=== PATIENT | female | born 1960 | race Caucasian/White ===

== ENCOUNTER 2019-04-07 07:15 | Inpatient (IN) | payer MEDICAID, OTHER ==
[~2019-04-07] VITALS: Ht 162.6 cm; Wt 79.4 kg
[2019-04-07] MEDS ORDERED: ALBUTEROL SULF 2.5 MG/0.5ML(0.5%) NEB SOLN HHN ONE (07:30)
[2019-04-07] MEDS ORDERED: IPRATROPIUM BROM 0.5 MG/2.5ML INH SOL HHN ONE (07:30)
[2019-04-07] MEDS ORDERED: methylPREDNISolone SOD SUCC 125 MG/2 ML VL IV ONE (07:30)
[2019-04-07 08:15] LABS: Hematocrit 48.2 % (36.0-46.0); Hemoglobin 15.9 g/dL (12.2-16.2); Mean Corpuscular Hemoglobin 29.8 pg (28.0-32.0); Mean Corpuscular Volume 90.3 fL (80.0-100.0); Platelet Count (auto) 357 10^3/uL (140-450); Red Blood Cells 5.33 10^6/uL (4.0-5.20); Red Cell Distribution Width 14.7 % (11.8-14.3); White Blood Cell 8.5 10^3/uL (4.4-10.8)
[2019-04-07 08:18] LABS: Band Neutrophils % (manual) 0; Basophils % (manual) 0 (0.0-2.0); Blast Cells 0; Metamyelocytes % 0; Myelocytes % 0; Promyelocytes % 0; Reactive Lymphocytes 0
[2019-04-07 08:34] LABS: Albumin 3.5 g/dL (3.4-5.0); Calcium 8.6 mg/dL (8.5-10.1); Potassium 3.8 mmol/L (3.5-5.1)
[2019-04-07 08:35] LABS: Eosinophils % (manual) 14 (0-7); Lymphocytes % (manual) 40 (10.0-50.0); Monocytes % (manual) 1 (0-12)
[2019-04-07 08:36] LABS: BUN/Creatinine Ratio 10.9; Lactic Acid w/Reflex 2.7 mmol/L (0.4-2.0)
[2019-04-07 08:41] LABS: Bilirubin, Total 0.3 mg/dL (0.2-1.0); Total Protein 7.5 g/dL (6.4-8.2)
[2019-04-07] MEDS ORDERED: ALBUTEROL SULF 2.5 MG/0.5ML(0.5%) NEB SOLN NEB PRN (08:45)
[2019-04-07] MEDS ORDERED: MORPHINE SULF INJ 2 MG/ML SYRINGE 1ML IV PRN (08:45)
[2019-04-07] MEDS ORDERED: ACETAMINOPHEN 500 MG TAB PO PRN (08:45)
[2019-04-07] MEDS ORDERED: NITROGLYCERIN 0.4 MG SL TAB SL PRN (08:45)
[2019-04-07] MEDS ORDERED: DEXTROSE (50%) 50ML SYRG IV PRN (08:45)
[2019-04-07] MEDS ORDERED: OSELTAMIVIR 75 MG CAP PO ONE (08:45)
[2019-04-07] MEDS ORDERED: LACTULOSE 20Gm/30ML SOLN PO PRN (08:45)
[2019-04-07] MEDS ORDERED: LEVOFLOXACIN 500MG 100 ML IV ONE (09:00)
[2019-04-07] MEDS: SODIUM CHLORIDE 0.9% 1,000 ML IV SCH ×2 (09:02→22:05)
[2019-04-07] MEDS: cefTRIAXone 1GM/50ML D5W 50 ML IV SCH (09:03)
[2019-04-07] MEDS: OSELTAMIVIR 75 MG CAP PO SCH ×2 (10:00→17:31)
[2019-04-07] MEDS: AZITHROMYCIN 500MG/ 250ML 250 ML IV SCH (10:29)
[2019-04-07] MEDS: ALBUTEROL SULF 2.5 MG/0.5ML(0.5%) NEB SOLN NEB SCH ×2 (11:06→18:41)
[2019-04-07] MEDS: IPRATROPIUM BROM 0.5 MG/2.5ML INH SOL NEB SCH ×2 (11:06→18:42)
[2019-04-07] MEDS: ACCU-CHEK COMFORT CURVE STRIP VI SCH ×3 (11:30→22:04)
[2019-04-07] MEDS: ENOXAPARIN SOD 40 MG/0.4 ML SYRINGE SC SCH (11:45)
[2019-04-07] MEDS: PROMETHAZINE HCL 25 MG/ML 1ML IV PRN ×2 (12:36→12:40)
[2019-04-07] MEDS: methylPREDNISolone SOD SUCC 40 MG/ML VL IV SCH ×2 (12:40→17:34)
[2019-04-07 15:07] VITALS: BP 119/72
[2019-04-07] MEDS: traMADol HCL 50 MG TAB PO PRN (18:00)
--- NOTE | 2019-04-07 18:40 | NUR ---
RT NOTE PT WAS SEEN BY RT FOR HHN TX. PT TOLERATES WELL VIA MASK. NO ADVERSE REACTION NOTED. CONT ORDERED Addendum: 04/07/19 at 2156 by Susana Browne RT Amended: Links added.
[2019-04-08] MEDS: methylPREDNISolone SOD SUCC 40 MG/ML VL IV SCH ×4 (00:04→21:18)
[2019-04-08] MEDS: ALBUTEROL SULF 2.5 MG/0.5ML(0.5%) NEB SOLN NEB SCH ×4 (00:10→18:11)
[2019-04-08] MEDS: IPRATROPIUM BROM 0.5 MG/2.5ML INH SOL NEB SCH ×5 (00:10→22:03)
--- NOTE | 2019-04-08 00:11 | NUR ---
RT NOTE PT WAS SEEN BY RT FOR HHN TX. PT TOLERATES WELL VIA MASK. NO ADVERSE REACTION NOTED. CONT ORDERED Addendum: 04/08/19 at 0012 by Susana Browne RT Amended: Links added.
[2019-04-08] MEDS: traMADol HCL 50 MG TAB PO PRN ×3 (00:24→21:18)
[2019-04-08] MEDS: ACCU-CHEK COMFORT CURVE STRIP VI SCH ×4 (07:01→21:19)
[2019-04-08] MEDS: cefTRIAXone 1GM/50ML D5W 50 ML IV SCH (07:54)
[2019-04-08 08:00] VITALS: BP 114/65
[2019-04-08] MEDS: AZITHROMYCIN 500MG/ 250ML 250 ML IV SCH (08:46)
[2019-04-08] MEDS: ENOXAPARIN SOD 40 MG/0.4 ML SYRINGE SC SCH (08:46)
[2019-04-08] MEDS: SODIUM CHLORIDE 0.9% 1,000 ML IV SCH (11:17)
--- NOTE | 2019-04-08 13:55 | NUR ---
Admit to [facility] MABEL THOMASadmitted to [facility] via gurney on child monitor, and portable 02. Patient transfered to bed, connected to unit monitoring and oxygen, and weighed by bedscale. Patient oriented to Johanne mann RN, unit, room, bed, and unit policies regarding patient care and visiting hours. All questions and concerns addressed, patient verbalized understanding. NOTE: PATIENT STATES OF SOB WITH EXERTION. LUNGS WITH SCATTERED WHEEZING BILAT TO AUSCULTATION. O2 ON @ 5L PER OXYMIZER.
[2019-04-08 15:05] LABS: Basophils # (auto) 0 uL; Basophils % (auto) 0.1 % (0.0-2.0); Eosinophils # (auto) 0 uL; Hematocrit 43.5 % (36.0-46.0); Hemoglobin 14.4 g/dL (12.2-16.2); Lymphocytes # (auto) 0.7 uL; Mean Corpuscular Hemoglobin 29.3 pg (28.0-32.0); Mean Corpuscular Volume 88.7 fL (80.0-100.0); Monocytes # (auto) 0.2 uL; Monocytes % (auto) 1.3 % (0.0-12.0); Neutrophils # (auto) 10.6 uL; Neutrophils % (auto) 92.6 % (37.0-80.0); Platelet Count (auto) 332 10^3/uL (140-450); Red Blood Cells 4.91 10^6/uL (4.0-5.20); Red Cell Distribution Width 14.7 % (11.8-14.3); White Blood Cell 11.4 10^3/uL (4.4-10.8)
--- NOTE | 2019-04-08 15:15 | NUR ---
DR Jacey BOTELLO VISITS AND EXAMINES PATIENT-ORDERS RECEIVED. O2 CHANGED TO 2L PER NC PER DR BOTELLO ORDER. CURRENT SAO2 IS 98% ON O2 @ 4L PER OXYMIZER.
[2019-04-08 15:20] LABS: Calcium 9.1 mg/dL (8.5-10.1); Potassium 4.1 mmol/L (3.5-5.1)
[2019-04-08 15:50] VITALS: BP 125/73
[2019-04-08] MEDS ORDERED: guaiFENesin 200 MG/10 ML UD ONE (18:00)
[2019-04-08] MEDS ORDERED: methylPREDNISolone SOD SUCC 40 MG/ML VL IV SCH (18:00)
--- NOTE | 2019-04-08 18:00 | NUR ---
PATIENT ASSISTED UP TO BSC - EXTREMELY SOB WITH EXERTION-SAO2 87% WITH O2 ON AT 2L PER NC. PATIENT RECOVERED WITHIN 5 MIN. TO SAO2 94%.
[2019-04-08] MEDS ORDERED: guaiFENesin 200 MG/10 ML UD PO PRN (18:15)
[2019-04-08] MEDS: LEVOFLOXACIN 500MG 100 ML IV SCH (18:27)
--- NOTE | 2019-04-08 18:30 | NUR ---
MULTIPLE SCLEROSIS NURSE NOTED S-T DEPRESSION ON TELE MONITOR - 12 LEAD EKG OBTAINED. CALL PLACED TO DR Jacey BOTELLO - MESSAGE LEFT ON .
--- NOTE | 2019-04-08 19:38 | NUR ---
DR BALDERAS VISITS AND EXAMINES PATIENT - ORDERS RECEIVED.
[2019-04-08] MEDS ORDERED: LEVALBUTEROL HCL 1.25 MG/3 ML NEB NEB PRN (19:45)
--- NOTE | 2019-04-08 19:45 | NUR ---
ANOTHER CALL PLACED TO DR Jacey BOTELLO RE: ABNORMAL 12 LEAD EKG IN COMPARISON TO PREVIOUS 12 LEAD EKG.
[2019-04-08 20:00] VITALS: BP 109/73
--- NOTE | 2019-04-08 20:00 | NUR ---
SHIFT OPENING NOTE RECEIVED PATIENT AWAKE, ALERT AND ORIENTED X4. NO SOB, DISTRESS OR PAIN NOTED. ON 2L N/C. POX 95%. NS INFUSING THROUGH RIGHT HAND IV. PHYSICAL ASSESSMENT COMPLETED, SEE INTERVENTIONS. INSTRUCTED ON POC AND TO CALL FOR ASSIST NEEDED. BED IS IN THE LOWEST POSITION WITH SIDE RAILS UP X2, CALL LIGHT IS WITHIN REACH.
[2019-04-08] MEDS: LEVALBUTEROL HCL 1.25 MG/3 ML NEB NEB SCH (22:03)
[2019-04-09] VITALS: BP 113/56
--- NOTE | 2019-04-09 02:10 | NUR ---
UP TO BSC PATIENT ASSISTED TO BSC TO URINATE. SAFELY BACK TO BED.
[2019-04-09] MEDS: LEVALBUTEROL HCL 1.25 MG/3 ML NEB NEB SCH ×6 (02:27→22:12)
[2019-04-09] MEDS: IPRATROPIUM BROM 0.5 MG/2.5ML INH SOL NEB SCH ×6 (02:27→22:12)
[2019-04-09 04:00] VITALS: BP 113/76
[2019-04-09] MEDS: methylPREDNISolone SOD SUCC 40 MG/ML VL IV SCH ×3 (05:14→23:17)
[2019-04-09] MEDS: ACCU-CHEK COMFORT CURVE STRIP VI SCH ×4 (05:15→22:00)
[2019-04-09 05:18] LABS: Basophils # (auto) 0 uL; Basophils % (auto) 0.1 % (0.0-2.0); Eosinophils # (auto) 0 uL; Hematocrit 42.5 % (36.0-46.0); Hemoglobin 14.1 g/dL (12.2-16.2); Lymphocytes # (auto) 0.6 uL; Mean Corpuscular Hgb Conc. 33.1 g/dL (32.0-36.0); Mean Corpuscular Volume 90.5 fL (80.0-100.0); Monocytes # (auto) 0.6 uL; Monocytes % (auto) 4.9 % (0.0-12.0); Neutrophils # (auto) 10.2 uL; Platelet Count (auto) 296 10^3/uL (140-450); Red Cell Distribution Width 14.6 % (11.8-14.3); White Blood Cell 11.4 10^3/uL (4.4-10.8)
[2019-04-09 05:38] LABS: Calcium 9.1 mg/dL (8.5-10.1); Potassium 4.2 mmol/L (3.5-5.1)
[2019-04-09 05:43] LABS: BUN/Creatinine Ratio 27.4
--- NOTE | 2019-04-09 07:25 | NUR ---
END OF SHIFT REPORT GIVEN AND CARE ENDORSED TO CEM ELLIS.
[2019-04-09 07:45] VITALS: BP 109/73
[2019-04-09] MEDS ORDERED: ESCI10TA PO (08:37)
[2019-04-09] MEDS ORDERED: ALBUAER3 IN (08:40)
[2019-04-09] MEDS ORDERED: MONT5CHW17 PO (08:41)
[2019-04-09] MEDS ORDERED: CETI1TAB36 PO (08:42)
[2019-04-09] MEDS ORDERED: TIOTCAP IN (08:47)
[2019-04-09] MEDS: ENOXAPARIN SOD 40 MG/0.4 ML SYRINGE SC SCH (09:23)
[2019-04-09] MEDS: LEVOFLOXACIN 500MG 100 ML IV SCH (09:23)
--- NOTE | 2019-04-09 09:45 | NUR ---
RT HAND IV PUFFY, TENDER AND APPEARS INFILTRATED - #22 INSERTED RT FA X 1 ATTEMPT - PATIENT LOWELL. WELL.
[2019-04-09] MEDS ORDERED: FLUT0.05 NAS (09:59)
--- NOTE | 2019-04-09 11:26 | NUR ---
PATIENT CURRENTLY ON 1.5L O2 PER NC O2, SAO2 96%. O2 TURNED OFF PER DR BOTELLO ORDERS. SAO2 93% ON RA. WILL CONTINUE TO MONITOR SAO2 AT REST AND WITH EXERTION. PATIENT DENIES CHEST PAIN. HARSH NONPROD COUGH NOTED.
[2019-04-09] MEDS ORDERED: guaiFENesin-DM 100/10mg/5ml SYR PO PRN (11:30)
--- NOTE | 2019-04-09 11:40 | NUR ---
DR BOTELLO VISITS AND EXAMINES PATIENT - ORDERS RECEIVED.
--- NOTE | 2019-04-09 11:45 | NUR ---
SAO2 93-94% ON RA - RT INFORMED OF NEW ORDER TO REMOVE O2.
--- NOTE | 2019-04-09 11:55 | NUR ---
CONSENT FORM FOR IV CONTRAST SIGNED PER PATIENT FOR CT ANGIO CHEST.
[2019-04-09 12:00] VITALS: BP 119/74
[2019-04-09] MEDS ORDERED: IOHEXOL 350 MG/ML 100ML IJ ONE (12:10)
--- NOTE | 2019-04-09 12:10 | NUR ---
PATIENT ASSISTED UP TO BSC - SAO2 92% -PATIENT LOWELL. ACTIVITY FAIRLY WELL WITH MINIMAL SOB.
--- NOTE | 2019-04-09 12:21 | NUR ---
PATIENT TO CT PER BED ON LUSTERER - ACCOMPANIED PER RN.
--- NOTE | 2019-04-09 12:45 | NUR ---
PATIENT RETURNED FOR CT PER BED ON PULP GRINDER AND BLENDER ACCOMPANIED PER RN.
--- NOTE | 2019-04-09 14:58 | NUR ---
REPORT CALLED TO
--- NOTE | 2019-04-09 15:02 | NUR ---
CALL PLACED TO DR BOTELLO RE: CT ANGIO RESULTS.
--- NOTE | 2019-04-09 15:10 | NUR ---
Dr Payne returns call -CT angio results given-orders received.
--- NOTE | 2019-04-09 15:35 | NUR ---
Assumed care of patient, received report from ELVIS RN; patient now in room 289 BED A, and is lying supine in bed watching TV. No distress noted at this time, will continue to monitor Q1.
--- NOTE | 2019-04-09 15:37 | NUR ---
Received call from ultrasound to keep patient NPO for abdominal ultrasound.
[2019-04-09 17:00] VITALS: BP 127/85
[2019-04-09] MEDS: traMADol HCL 50 MG TAB PO PRN (20:31)
[2019-04-09 23:08] VITALS: BP 134/82
[2019-04-10] MEDS: LEVALBUTEROL HCL 1.25 MG/3 ML NEB NEB SCH ×6 (02:27→22:23)
[2019-04-10] MEDS: IPRATROPIUM BROM 0.5 MG/2.5ML INH SOL NEB SCH ×6 (02:27→22:23)
[2019-04-10 04:00] VITALS: BP 124/82
[2019-04-10] MEDS: methylPREDNISolone SOD SUCC 40 MG/ML VL IV SCH ×3 (05:38→21:18)
[2019-04-10] MEDS: traMADol HCL 50 MG TAB PO PRN ×2 (05:39→15:32)
[2019-04-10] MEDS: ACCU-CHEK COMFORT CURVE STRIP VI SCH ×4 (07:00→21:23)
--- NOTE | 2019-04-10 07:51 | NUR ---
RECEIVED REPORT AND ASSUMED CARE OF PT. A/OX4. DENIED S/S ACUTE DISTRESS. UPDATE PT WITH POC. BED AT LOWEST POSITION. CALL LIGHT AND BELONGINGS WITHIN REACH. WILL CONT TO MONITOR.
[2019-04-10 09:00] VITALS: BP 127/86
[2019-04-10] MEDS: LEVOFLOXACIN 500MG 100 ML IV SCH (10:13)
[2019-04-10] MEDS: ENOXAPARIN SOD 40 MG/0.4 ML SYRINGE SC SCH (10:14)
[2019-04-10 13:00] VITALS: BP 118/93
[2019-04-10] MEDS: PROMETHAZINE HCL 25 MG/ML 1ML IV PRN (14:58)
[2019-04-10 16:42] VITALS: BP 127/86
[2019-04-10 17:00] VITALS: BP 132/87
--- NOTE | 2019-04-10 19:30 | NUR ---
Opening Shift Note Assumed care of patient, awake and alert. No S/S of distress/SOB or pain. Updated on POC and to be NPO after MN. For Stress test tomorrow. Instructed to call for assist PRN, patient verbalized understanding. Bed in lowest position, call light within reach, will continue to monitor for changes Q1hr and PRN.
[2019-04-10 22:00] VITALS: BP 126/76
--- NOTE | 2019-04-11 02:25 | NUR ---
Respiratory note: PT SEEN FOR SCHEDULED MED NEB TX AT 0225. PT REFUSED HER TX AT THIS TIME STATING THAT SHE WOULD LIKE TO SLEEP. NO DISTRESS NOTED, PT WAS SLEEPING WHEN ENTERING THE ROOM. HR 102 RR 16 POX 94% ON ROOM AIR. PT AWARE TO CALL FOR RT IF SHE CHANGES HER MIND.
[2019-04-11 05:00] VITALS: BP 128/85
[2019-04-11] MEDS: methylPREDNISolone SOD SUCC 40 MG/ML VL IV SCH ×2 (06:32→13:44)
[2019-04-11] MEDS: ACCU-CHEK COMFORT CURVE STRIP VI SCH ×3 (06:32→17:00)
[2019-04-11] MEDS: IPRATROPIUM BROM 0.5 MG/2.5ML INH SOL NEB SCH ×3 (07:09→14:50)
[2019-04-11] MEDS: LEVALBUTEROL HCL 1.25 MG/3 ML NEB NEB SCH ×3 (07:09→14:50)
--- NOTE | 2019-04-11 07:30 | NUR ---
Opening Shift Note Assumed care of patient, awake and alert, oriented x 4 and verbally responsive. No S/S of distress/SOB or pain. Skin is warm and dry to touch. Patient NPO for a stress test, tolerated well. No s/s of hyperglycemia or hypoglycemia noted. Instructed on POC and to call for assist PRN, will continue to monitor for changes Q1hr and PRN.
[2019-04-11] MEDS ORDERED: ADENOSINE 67 MG in GIVE UN-DILUTED 0 ML IV ONE (08:15)
[2019-04-11 08:57] VITALS: BP 138/80
[2019-04-11] MEDS: LEVOFLOXACIN 500MG 100 ML IV SCH (09:08)
[2019-04-11] MEDS: ENOXAPARIN SOD 40 MG/0.4 ML SYRINGE SC SCH (09:08)
[2019-04-11 09:52] VITALS: BP 140/94
[2019-04-11] MEDS: traMADol HCL 50 MG TAB PO PRN (12:30)
[2019-04-11 12:45] VITALS: BP 133/81
--- NOTE | 2019-04-11 14:31 | NUR ---
Nutrition Assessment Notes Please refer to link for full assessment notes Est energy needs: 9716-2149 kcals (17-20 kcal/kgBW) Est protein needs: 49-61 gms/day (0.8-1.0 gm/kgAdj BW) Will continue to monitor and reassess prn Addendum: 04/11/19 at [address] Amended: Links added.
--- NOTE | 2019-04-11 15:09 | NUR ---
assessment Patient is a 58 year old female who is alert and oriented. Patients cognitive abilities are intact. Prior to admission patient lived home with family and functioned independently. Patient informed me she is able to care for her own ADLs. Per patient she will return home to her prior living arrangements post discharge and family will transport her home. Patient has no need for DME. I informed patient her post discharge needs to be determined prior to discharge. I informed patient she has a right to speak to a licensed master social worker regarding all care. I informed patient she has a right to participate in any and all discharge planning. Patient does not have a POA and advanced directive. I have offered patient information on POA and advanced directives. I informed the patient the advantages and benefits of having an Advanced Directive. Patient verbalized understanding and agreed to discharge plan. Addendum: 04/11/19 at 1510 by Shital ENNIS Amended: Links added.
--- NOTE | 2019-04-11 15:53 | NUR ---
D/C Planning Per consult for home health safety evaluation. Contact and faxed medical records to [facility] . Per Diane from [facility] patient has been accepted and service to start within 24-48hrs upon d/c day. Faxed to [facility] for Authorization. Navin Dorsey from [facility] authorization for [facility] is [id number]. Addendum: 04/11/19 at 1555 by GUILLERMINA MOORE Amended: Links added.
--- NOTE | 2019-04-11 16:27 | NUR ---
Dr. Avila paged regarding discharge clearance. Awaiting to call back. Spoke to Claire.
--- NOTE | 2019-04-11 17:00 | NUR ---
Received a call from Dr. Braswell regarding patient is cleared from Dr. Avila.
[2019-04-11 17:03] VITALS: BP 140/73
--- NOTE | 2019-04-11 17:10 | NUR ---
Per communication order, patient is cleared to d/c from cardiac standpoint.
[2019-04-11 17:27] VITALS: BP 140/73
--- NOTE | 2019-04-11 18:20 | NUR ---
Discharge instructions given as ordered. Encourage to follow up with PMD ( Dr. Mary Sánchez#[phone] Address :[address], [address], , [place] ) as instructed. All questions and concerns addressed. Patient verbalized understanding. Medication reconciliation form completed and copy given to patient. IV removed with catheter intact, pressure dressing applied. Telemetry unit returned to ICU. Patient taken to vehicle via wheelchair with all personal belongings, accompanied by staff and family member. No distress noted at time of departure.
== END 2019-04-11 18:20 | disposition home health service (06) | DRG 133 ==
LOC: ER 07:15 → EDBD 07:15 → TELE 07:16 → DOU IN ICU 04-08 13:55 → TELE-WESTW 04-09 15:15
PROVIDERS: ADMIT Internal Medicine; ATTEND Internal Medicine
PROC: 5A09357 Assistance with Respiratory Ventilation, Less than 24 Consecutive Hours, Continuous Positive Airway Pressure (ICD-10-PCS; principal; 2019-04-07)
DX: J96.01 Acute respiratory failure with hypoxia (principal); J18.9 Pneumonia, unspecified organism; J45.902 Unspecified asthma with status asthmaticus; J44.0 Chronic obstructive pulmonary disease with (acute) lower respiratory infection; R16.0 Hepatomegaly, not elsewhere classified; J44.1 Chronic obstructive pulmonary disease with (acute) exacerbation; K57.90 Diverticulosis of intestine, part unspecified, without perforation or abscess without bleeding; Z77.22 Contact with and (suspected) exposure to environmental tobacco smoke (acute) (chronic); D18.03 Hemangioma of intra-abdominal structures; Z90.49 Acquired absence of other specified parts of digestive tract; Z87.891 Personal history of nicotine dependence; Z82.49 Family history of ischemic heart disease and other diseases of the circulatory system
CPT/HCPCS: 36415; 36600; 71045; 71275; 76700; 78452; 80048; 80053; 82805; 82962; 83036; 83605; 83880; 84484; 85007; 85025; 85027; 87040; 87804; 93005; 93017; 93306; 94640; 94644; 94660; 96365; 96367; 96372; 96375; 99291; G0378; J0153; J0696; J1956

== ENCOUNTER 2019-05-16 20:24 | Inpatient (IN) | payer MEDICAID, OTHER ==
[~2019-05-16] VITALS: Ht 162.6 cm; Wt 82.0 kg
[~2019-05-16 20:24] MED LIST: ALBUAER3 IN; CETI1TAB36 PO; ESCI10TA PO; FLUT0.05 NAS; MONT5CHW17 PO; TIOTCAP IN
[2019-05-16] MEDS ORDERED: methylPREDNISolone SOD SUCC 125 MG/2 ML VL IV ONE (20:30)
[2019-05-16] MEDS ORDERED: ALBUTEROL SULF 2.5 MG/0.5ML(0.5%) NEB SOLN HHN ONE (20:30)
[2019-05-16] MEDS ORDERED: IPRATROPIUM BROM 0.5 MG/2.5ML INH SOL HHN ONE (20:30)
[2019-05-16] MEDS ORDERED: ALBUTEROL SULF 2.5 MG/0.5ML(0.5%) NEB SOLN ONE (20:33)
[2019-05-16] MEDS ORDERED: IPRATROPIUM BROM 0.5 MG/2.5ML INH SOL ONE (20:34)
[2019-05-16 21:26] LABS: Anion Gap 10 (5-15); Blood Urea Nitrogen 14 mg/dL (7-18); Calcium 8.9 mg/dL (8.5-10.1); Carbon Dioxide 21 mmol/L (21-32); Chloride 107 mmol/L (98-107); Glucose 206 mg/dL (74-106); Potassium 3.6 mmol/L (3.5-5.1); Sodium 138 mmol/L (136-145)
[2019-05-16 21:28] LABS: Lactic Acid w/Reflex 3.2 mmol/L (0.4-2.0)
[2019-05-16 21:31] LABS: Alanine Aminotransferase 35 U/L (13-56); Alkaline Phosphatase 104 U/L (45-117); Aspartate Aminotransferase 24 U/L (15-37); BUN/Creatinine Ratio 13.5; Bilirubin, Total 0.6 mg/dL (0.2-1.0); GFR African American 70 mL/min; GFR Non-African American 58 mL/min; Total Protein 7.6 g/dL (6.4-8.2)
[2019-05-16 21:32] LABS: Basophils # (auto) 0.1 10 ^3/uL (0-0.2); Eosinophils # (auto) 0 10 ^3/uL (0-0.8); Eosinophils % (auto) 0.4 % (0.0-7.0); Hematocrit 44.8 % (36.0-46.0); Hemoglobin 15.2 g/dL (12.2-16.2); Lymphocytes # (auto) 1.3 10 ^3/uL (0.4-5.4); Lymphocytes % (auto) 17.8 % (10.0-50.0); Mean Corpuscular Hemoglobin 30.5 pg (28.0-32.0); Mean Corpuscular Volume 89.6 fL (80.0-100.0); Monocytes # (auto) 0.4 10 ^3/uL (0-1.3); Neutrophils # (auto) 5.5 10 ^3/uL (1.6-8.6); Neutrophils % (auto) 75.8 % (37.0-80.0); Platelet Count (auto) 363 10^3/uL (140-450); Red Cell Distribution Width 14.3 % (11.8-14.3); White Blood Cell 7.3 10^3/uL (4.4-10.8)
[2019-05-16] MEDS ORDERED: MORPHINE SULF INJ 2 MG/ML SYRINGE 1ML IV PRN (22:00)
[2019-05-16] MEDS ORDERED: cefTRIAXone 1GM/50ML D5W 50 ML IV ONE (22:00)
[2019-05-16] MEDS ORDERED: SODIUM CHLORIDE 0.9% 500 ML IV ONE (22:00)
[2019-05-16] MEDS ORDERED: TEMAZEPAM 15 MG CAP PO PRN (22:00)
[2019-05-16] MEDS ORDERED: NITROGLYCERIN 0.4 MG SL TAB SL PRN (22:00)
[2019-05-16] MEDS: FAMOTIDINE 20 MG TAB PO SCH (22:15)
[2019-05-16] MEDS: ALBUTEROL SULF 2.5 MG/0.5ML(0.5%) NEB SOLN NEB SCH (23:56)
[2019-05-16] MEDS: IPRATROPIUM BROM 0.5 MG/2.5ML INH SOL NEB SCH (23:56)
[2019-05-17] VITALS (7 sets, daily range): BP systolic 126–151; BP diastolic 71–98
[2019-05-17] MEDS ORDERED: IOHEXOL 350 MG/ML 100ML IJ ONE (01:09)
[2019-05-17] MEDS: ONDANSETRON HCL 4 MG/2 ML VIAL IV PRN ×2 (02:25→20:02)
[2019-05-17] MEDS: ALBUTEROL SULF 2.5 MG/0.5ML(0.5%) NEB SOLN NEB SCH ×2 (06:00→11:52)
[2019-05-17] MEDS: IPRATROPIUM BROM 0.5 MG/2.5ML INH SOL NEB SCH ×4 (06:00→22:20)
[2019-05-17 06:06] LABS: Basophils # (auto) 0 10 ^3/uL (0-0.2); Basophils % (auto) 0.1 % (0.0-2.0); Eosinophils # (auto) 0 10 ^3/uL (0-0.8); Hematocrit 40.4 % (36.0-46.0); Hemoglobin 14.1 g/dL (12.2-16.2); Lymphocytes # (auto) 0.5 10 ^3/uL (0.4-5.4); Lymphocytes % (auto) 7.3 % (10.0-50.0); Mean Corpuscular Hemoglobin 30.9 pg (28.0-32.0); Mean Corpuscular Volume 88.3 fL (80.0-100.0); Monocytes # (auto) 0.1 10 ^3/uL (0-1.3); Monocytes % (auto) 0.8 % (0.0-12.0); Neutrophils # (auto) 6.9 10 ^3/uL (1.6-8.6); Neutrophils % (auto) 91.8 % (37.0-80.0); Platelet Count (auto) 301 10^3/uL (140-450); Red Blood Cells 4.57 10^6/uL (4.0-5.20); Red Cell Distribution Width 14.2 % (11.8-14.3); White Blood Cell 7.5 10^3/uL (4.4-10.8)
[2019-05-17 06:21] LABS: Calcium 8.6 mg/dL (8.5-10.1); Potassium 3.9 mmol/L (3.5-5.1)
[2019-05-17] MEDS ORDERED: ESCI10TA53 (06:35)
[2019-05-17] MEDS ORDERED: ALBU108A5 (06:35)
[2019-05-17] MEDS ORDERED: CETI10TA80 (06:35)
[2019-05-17] MEDS ORDERED: IPRAAER6 (06:35)
[2019-05-17] MEDS ORDERED: FLUT50SP (06:35)
[2019-05-17] MEDS ORDERED: TIOT1AER2 (06:35)
[2019-05-17] MEDS ORDERED: MONT10TA34 (06:35)
[2019-05-17] MEDS ORDERED: cefTRIAXone 1GM/50ML D5W 50 ML IV SCH (09:00)
[2019-05-17] MEDS ORDERED: methylPREDNISolone SOD SUCC 125 MG/2 ML VL ONE (10:03)
[2019-05-17] MEDS: FAMOTIDINE 20 MG TAB PO SCH (10:14)
[2019-05-17] MEDS ORDERED: methylPREDNISolone SOD SUCC 125 MG/2 ML VL IV ONE (10:15)
[2019-05-17] MEDS ORDERED: ALBUTEROL SULF 2.5 MG/0.5ML(0.5%) NEB SOLN ONE (10:26)
[2019-05-17] MEDS ORDERED: ALBUTEROL SULF 2.5 MG/0.5ML(0.5%) NEB SOLN NEB ONE (10:30)
[2019-05-17] MEDS: SODIUM CHLORIDE 0.9% 1,000 ML IV SCH ×2 (11:29)
[2019-05-17] MEDS ORDERED: EPINEPHrine HCL 0.5 ML NEB ONE (11:58)
[2019-05-17] MEDS ORDERED: EPINEPHrine HCL 0.5 ML NEB NEB ONE (12:00)
[2019-05-17] MEDS ORDERED: IPRATROPIUM BROM 0.5 MG/2.5ML INH SOL NEB PRN (12:15)
[2019-05-17] MEDS ORDERED: methylPREDNISolone SOD SUCC 40 MG/ML VL IV SCH (14:00)
[2019-05-17] MEDS: ACETAMINOPHEN 325 MG TAB PO PRN (15:27)
[2019-05-17] MEDS: levoFLOXacin 500MG 100 ML IV SCH (15:27)
[2019-05-17] MEDS: PANTOPRAZOLE 40 MG TAB PO SCH (15:28)
[2019-05-17] MEDS ORDERED: LEVALBUTEROL HCL 1.25 MG/3 ML NEB NEB SCH (18:00)
--- NOTE | 2019-05-17 18:38 | NUR ---
REPORT REPORT RECEIVED FROM JOSE ARMANDO. PT COMING TO ICU ROOM 104 A [facility] PT.
--- NOTE | 2019-05-17 18:50 | NUR ---
Admit OF [facility] PT TO ICU ROOM #104 MABEL THOMAS admitted to ICU [facility] PT via gurbrent on compliance monitor, and portable 02. Patient transfered to bed, connected to unit monitoring and oxygen AT 4 L/M VIA NC , and weighed by ernie, 79.2 KG. Patient oriented to Tomasa Aleman, primary RN, unit, room, bed, and unit policies regarding patient care and visiting hours. All questions and concerns addressed, patient verbalized understanding. NOTE: PT A/O X4,FOLLOWS COMMANDS AND ABLE TO ASSIST IN TRANSFER TO BED. LUNGS WITH WHEEZES THROUGHOUT AND ALSO AUSCULTATED IN THROAT. O2 AT 4 L/M VIA NC WITH O2 SAT OF 96$%. PT REQUESTING MN TREATMENT, PAGED RT. TELE ST 108. PALPABLE PULSES TO ALL EXTREMITIES. ABD SOFT WITH + BOWEL SOUNDS. NO VOID SINCE PRE 0700. SKIN INTACT EXCEPT FOR SOME RED PEELY SKIN ON BOTH HANDS. PT STATES IT IS DERMATITIS. C/O PAIN TO HER RIGH RIBS, UNKNOWN CAUSE, AND TO BOTH LEGS. CONTIUE TO MONITOR. Addendum: 05/17/19 at 1955 by Tomasa Aleman RN PT STATED DAILY BM WITH LAST BM 05/16/19
--- NOTE | 2019-05-17 19:05 | NUR ---
OPENING SHIFT RECEIVED REPORT FROM DAY SHIFT RN. ASSUMED CARE OF PATIENT. PATIENT IN BED WATCHING TV WITH NO SIGNS OR SYMPTOMS OF SOB, PAIN OR DISTRESS. CURRENTLY ON 4L 02 NASAL CANNULA, 02 SAT - 95%. LEFT WRIST IV - CLEAN/DRY/INTACT. UPDATED PATIENT ON PLAN OF CARE. REPOSITIONED FOR COMFORT. BED IN LOWEST POSITION, SIDE RAILS UP X2, CALL LIGHT WITHIN REACH. WILL CONTINUE TO MONITOR.
--- NOTE | 2019-05-17 19:20 | NUR ---
REPORT REPORT GIVEN TO SINGH RNARSENIO. BEDSIDE CHECK DONE. PT C/O PAIN TO HER RIBS ON THE RIGHT SIDE ,UNDER HER BREAST, AND ALSO TO BOTH OF HER LEGS. PT WAS GIVEN TYLENOL EARLIER WITH NO RELIEF NOTED. CALLED DR Man LEON AND LEFT A MESSAGE WITH PT'S COMPLAINTS OF PAIN AND REQUESTING PAIN MED ORDER.
--- NOTE | 2019-05-17 19:40 | NUR ---
ASSISTED PT TO BSC WHERE SHE VOIDED QS CLEAR YELLOW URINE. ASSISTED PT BACK TO BED. TOLERATED WELL.
[2019-05-17] MEDS: methylPREDNISolone SOD SUCC 40 MG/ML VL IV SCH (20:02)
--- NOTE | 2019-05-17 20:45 | NUR ---
DR. LEON SPOKE WITH DR. LEON OVER THE PHONE. MADE AWARE THAT PATIENT IS COMPLAINING OF PAIN IN LOWER LEG AND RIGHT LOWER CHEST PAIN. RECEIVED ORDERS FOR NORCO 5/325 Q6 PRN FOR MODERATE TO SEVER PAIN. NOTED AND CARRIED OUT, WILL CONTINUE TO MONITOR.
[2019-05-17] MEDS: HYDROcodone-ACET 5/325MG TAB PO PRN (22:08)
[2019-05-17] MEDS: LEVALBUTEROL HCL 1.25 MG/3 ML NEB NEB SCH (22:20)
[2019-05-18] VITALS (8 sets, daily range): BP systolic 97–141; BP diastolic 46–80
[2019-05-18] MEDS: SODIUM CHLORIDE 0.9% 1,000 ML IV SCH ×3 (00:40→21:55)
[2019-05-18] MEDS: methylPREDNISolone SOD SUCC 40 MG/ML VL IV SCH ×4 (01:14→19:40)
[2019-05-18] MEDS: IPRATROPIUM BROM 0.5 MG/2.5ML INH SOL NEB SCH ×6 (02:33→22:12)
[2019-05-18] MEDS: LEVALBUTEROL HCL 1.25 MG/3 ML NEB NEB SCH ×6 (02:33→22:12)
--- NOTE | 2019-05-18 03:11 | NUR ---
MORNING CARE PATIENT REFUSED MORNING CARE AT THIS TIME. CLEAN LINEN LEFT AT BEDSIDE.
[2019-05-18 04:10] LABS: Basophils # (auto) 0 10 ^3/uL (0-0.2); Basophils % (auto) 0.1 % (0.0-2.0); Eosinophils # (auto) 0 10 ^3/uL (0-0.8); Hematocrit 38.5 % (36.0-46.0); Hemoglobin 13.2 g/dL (12.2-16.2); Lymphocytes # (auto) 0.5 10 ^3/uL (0.4-5.4); Lymphocytes % (auto) 5.3 % (10.0-50.0); Mean Corpuscular Hemoglobin 30.5 pg (28.0-32.0); Mean Corpuscular Hgb Conc. 34.3 g/dL (32.0-36.0); Mean Corpuscular Volume 88.9 fL (80.0-100.0); Monocytes # (auto) 0.4 10 ^3/uL (0-1.3); Monocytes % (auto) 3.9 % (0.0-12.0); Neutrophils # (auto) 8.3 10 ^3/uL (1.6-8.6); Neutrophils % (auto) 90.7 % (37.0-80.0); Platelet Count (auto) 293 10^3/uL (140-450); Red Blood Cells 4.33 10^6/uL (4.0-5.20); Red Cell Distribution Width 14.1 % (11.8-14.3); White Blood Cell 9.1 10^3/uL (4.4-10.8)
[2019-05-18 04:29] LABS: Potassium 3.8 mmol/L (3.5-5.1)
[2019-05-18 04:31] LABS: BUN/Creatinine Ratio 18.9
--- NOTE | 2019-05-18 07:24 | NUR ---
END OF SHIFT REPORT GIVEN TO DAY SHIFT RN. CARE ENDORSED.
[2019-05-18] MEDS: levoFLOXacin 500MG 100 ML IV SCH (10:35)
[2019-05-18] MEDS: PANTOPRAZOLE 40 MG TAB PO SCH (10:35)
[2019-05-18] MEDS: ENOXAPARIN SOD 40 MG/0.4 ML SYRINGE SC SCH (10:36)
--- NOTE | 2019-05-18 12:30 | NUR ---
ELIMINATION Patient requested to get out of bed to bedside commode. Patient able to void with no incident. Patient able to get back into bed. SOB with exertion and wheezing heard.
[2019-05-18] MEDS: ACETAMINOPHEN 325 MG TAB PO PRN (12:41)
--- NOTE | 2019-05-18 13:45 | NUR ---
MD Dr. Macdonald at bedside updated on patient condition with no new orders. MD spoke to patient regarding plan of care and questions/concerns answered by MD.
--- NOTE | 2019-05-18 14:00 | NUR ---
MD Dr. Price at bedside updated on patient condition with no new orders. MD spoke to patient regarding plan of care and questions/concerns answered by MD.
[2019-05-18] MEDS: HYDROcodone-ACET 5/325MG TAB PO PRN (14:55)
--- NOTE | 2019-05-18 15:20 | NUR ---
MD Dr. Workman at bedside updated on patient condition with no new orders. MD spoke to patient regarding plan of care and questions/concerns answered by MD.
--- NOTE | 2019-05-18 20:00 | NUR ---
[facility] DOWNGRADE STATUS. ADMITTED 05/16/19 WITH DYSPNEA, SYNCOPE. ALERT. ORIENTED. KENA. SPEECH CLEAR. LUNGS DIMINISHED AND CLEAR. ON 4LNP. REQUESTED TO GET UP TO THE COMMODE. DID WELL. SLIGHT DYSPNEA ON EXERTION. NO DESATURATION. ABDOMEN SOFT. COMPLAINS OF A SLIGHT HEADACHE. COMPLAINS OF RIGHT RIB AREA PAIN. RIGHT UNDER THE RIGHT RIB SET IS A 4X 3 IN AREA THAT IS RED AND RAISED. PATIENT IS NOT AWARE OF WHAT HAPPENED. ATE 95% OF MEAL. NO NAUSEA. NO PERIPHERAL EDEMA. ALL EXTREMITIES WARM. FULL RANGE OF MOTION OF EXTREMITIES. MAIN IV AT 75CC/HR. LEFT WRIST 20G IV THAT SHOWS NO REDNESS OR SWELLING.
--- NOTE | 2019-05-18 22:00 | NUR ---
RESPIRATORY TREATMENT DONE. THEN UP TO COMMODE. VOIDED CLEAR YELLOW LIQUID. EXERTIONAL DYSPNEA WHEN GETTING BACK TO BED.
[2019-05-19] VITALS (10 sets, daily range): BP systolic 123–155; BP diastolic 63–83
[2019-05-19] MEDS: methylPREDNISolone SOD SUCC 40 MG/ML VL IV SCH ×4 (00:18→22:40)
[2019-05-19] MEDS: HYDROcodone-ACET 5/325MG TAB PO PRN (00:28)
--- NOTE | 2019-05-19 00:30 | NUR ---
RIGHT CHEST WALL PAIN. REQUESTED A NORCO
--- NOTE | 2019-05-19 00:52 | NUR ---
BOTH LUNG SOUNDS ARE DIMINISHED WITH INSPIRATORY /EXPIRATORY WHEEZING
[2019-05-19] MEDS: IPRATROPIUM BROM 0.5 MG/2.5ML INH SOL NEB SCH ×6 (02:09→21:54)
[2019-05-19] MEDS: LEVALBUTEROL HCL 1.25 MG/3 ML NEB NEB SCH ×6 (02:09→21:54)
--- NOTE | 2019-05-19 03:34 | NUR ---
AM LABS DRAWN
--- NOTE | 2019-05-19 04:00 | NUR ---
ALERT. ORIENTED. LUNGS: DIMINISHED , STRESSED SOUND WHEN SHE COUGHS. NO WHEEZING. MINOR WELL. NO PERIPHERAL EDEMA. EXTREMITIES ARE WARM. PLEASANT.
[2019-05-19 04:04] LABS: Basophils # (auto) 0 10 ^3/uL (0-0.2); Basophils % (auto) 0.1 % (0.0-2.0); Eosinophils # (auto) 0 10 ^3/uL (0-0.8); Hematocrit 35.8 % (36.0-46.0); Hemoglobin 12.2 g/dL (12.2-16.2); Lymphocytes # (auto) 0.7 10 ^3/uL (0.4-5.4); Lymphocytes % (auto) 7.3 % (10.0-50.0); Mean Corpuscular Hemoglobin 30.2 pg (28.0-32.0); Monocytes # (auto) 0.4 10 ^3/uL (0-1.3); Monocytes % (auto) 4.6 % (0.0-12.0); Neutrophils # (auto) 8.3 10 ^3/uL (1.6-8.6); Nucleated Red Blood Cells % 0.1 %; Platelet Count (auto) 266 10^3/uL (140-450); Red Blood Cells 4.03 10^6/uL (4.0-5.20); Red Cell Distribution Width 14.1 % (11.8-14.3); White Blood Cell 9.4 10^3/uL (4.4-10.8)
[2019-05-19 04:18] LABS: BUN/Creatinine Ratio 18.7; Calcium 8.7 mg/dL (8.5-10.1); Potassium 3.6 mmol/L (3.5-5.1)
--- NOTE | 2019-05-19 06:29 | NUR ---
RECEIVING A RESPIRATORY TREATMENT. NSR WITHOUT ECTOPY. LUNGS DIMINISHED. 4LNP. IV SITE SHOWS NO REDNESS OR SWELLING.
[2019-05-19] MEDS: PANTOPRAZOLE 40 MG TAB PO SCH (10:08)
[2019-05-19] MEDS: ENOXAPARIN SOD 40 MG/0.4 ML SYRINGE SC SCH (10:09)
[2019-05-19] MEDS: levoFLOXacin 500MG 100 ML IV SCH (10:09)
[2019-05-19] MEDS: SODIUM CHLORIDE 0.9% 1,000 ML IV SCH (10:17)
--- NOTE | 2019-05-19 15:00 | NUR ---
Faxed home nebulizer order to [facility] requesting authorization for SG. I called ANN and spoke with Elisabet ([phone])-she will forward the information to June who will send the authorization to SG.
--- NOTE | 2019-05-19 15:57 | NUR ---
Social Service consult regarding Advance Directives. Provided pt with information on Advance Directives. Provided pt with information on Advance Directives and Durable Power of Engineering Surveyor Form. Pt verbalized understanding and accepted the information. Will contact Super[employer] for any further concerns or issues.
--- NOTE | 2019-05-19 16:16 | NUR ---
Received Social Service Consult regarding ordering a med [employer]. Faxed information to Jd Spoke with Elisabet who stated she received the referral. Katie contacted to obtain a authorization. Pt may be discharge tomorrow.
--- NOTE | 2019-05-19 16:33 | NUR ---
I received a call from [facility] Maya letting me know that the nebulizer auth has to come from [facility]. Faxed nebulizer order to [facility] requesting authorization for SG.
--- NOTE | 2019-05-19 20:00 | NUR ---
ADMITTED WITH ASTHMA/COPD EXACERBATION. IMPROVING. ON 1LNP. LESS EXERTIONAL DYSPNEA TODAY. DIMINISHED LUNG SOUNDS. NO WHEEZING. ALL PULSES PALPABLE. NO PERIPHERAL EDEMA. DISCUSSED INHALERS, RESCUE INHALERS WITH HER. SHE STATED THAT SHE HAS AN APPT IN A FEW DAYS WITH AN ASTHMA/ALLERGY MD. IVÁN PATEL. HERE VISITING.
--- NOTE | 2019-05-19 21:38 | NUR ---
TELEMETRY DOWNGRADE. RECEIVED A BED FOR TRANSFER. REPORT CALLED TO CALEB ALVAREZ. WHEELCHAIR WITH OXYGEN TANK IN ROOM. PLACED ON A TELEMETRY BOX.
--- NOTE | 2019-05-19 22:58 | NUR ---
PATIENT TRANSFERRED FROM ICU. MABEL THOMAS admitted to Telemetry unit after SBAR received. Patient oriented to GAMA SIERRA, RN primary RN, unit, room, bed, and unit policies regarding patient care and visiting hours. Patient now on continuous telemetry monitoring, tele box # 14 and telemetry reading on arrival to unit is SR 95 BPM. Patient placed on bedside oxygen, weighed by bedscale and encouraged to call if they need something. All questions and concerns addressed, patient verbalized understanding. bed in low position and call light within reach
[2019-05-20] MEDS: LEVALBUTEROL HCL 1.25 MG/3 ML NEB NEB SCH ×6 (01:52→22:45)
[2019-05-20] MEDS: IPRATROPIUM BROM 0.5 MG/2.5ML INH SOL NEB SCH ×6 (01:52→22:45)
[2019-05-20 05:36] VITALS: BP 134/82
[2019-05-20] MEDS: SODIUM CHLORIDE 0.9% 1,000 ML IV SCH (05:45)
[2019-05-20 06:20] LABS: Basophils # (auto) 0 10 ^3/uL (0-0.2); Eosinophils # (auto) 0 10 ^3/uL (0-0.8); Hematocrit 37.5 % (36.0-46.0); Lymphocytes # (auto) 0.8 10 ^3/uL (0.4-5.4); Lymphocytes % (auto) 10.6 % (10.0-50.0); Mean Corpuscular Hemoglobin 30.9 pg (28.0-32.0); Mean Corpuscular Hgb Conc. 34.7 g/dL (32.0-36.0); Mean Corpuscular Volume 89.1 fL (80.0-100.0); Monocytes # (auto) 0.3 10 ^3/uL (0-1.3); Monocytes % (auto) 3.5 % (0.0-12.0); Neutrophils # (auto) 6.2 10 ^3/uL (1.6-8.6); Neutrophils % (auto) 85.9 % (37.0-80.0); Nucleated Red Blood Cells % 0.1 %; Platelet Count (auto) 238 10^3/uL (140-450); Red Blood Cells 4.21 10^6/uL (4.0-5.20); Red Cell Distribution Width 14.4 % (11.8-14.3); White Blood Cell 7.2 10^3/uL (4.4-10.8)
[2019-05-20 06:38] LABS: BUN/Creatinine Ratio 17.1; Calcium 8.5 mg/dL (8.5-10.1); Potassium 3.9 mmol/L (3.5-5.1)
--- NOTE | 2019-05-20 07:26 | NUR ---
Opening Shift Note Assumed care of patient, awake and alert. No S/S of distress,SOB with activity, reports mild side pain. Instructed on POC and to call for assist PRN, will continue to monitor for changes Q1hr and PRN.
--- NOTE | 2019-05-20 07:26 | NUR ---
report given to dayshift rn patient denies sob distress or pain.
[2019-05-20 09:00] VITALS: BP 139/78
[2019-05-20] MEDS: methylPREDNISolone SOD SUCC 40 MG/ML VL IV SCH ×2 (09:43→21:19)
[2019-05-20] MEDS: levoFLOXacin 500MG 100 ML IV SCH (09:43)
[2019-05-20] MEDS: PANTOPRAZOLE 40 MG TAB PO SCH (09:43)
[2019-05-20] MEDS: ENOXAPARIN SOD 40 MG/0.4 ML SYRINGE SC SCH (09:44)
[2019-05-20 13:00] VITALS: BP 146/86
--- NOTE | 2019-05-20 14:52 | NUR ---
Nutrition Assessment Notes Please refer to link for full assessment notes. Est energy needs: 4937-6986 kcals (17-20 kcal/kgBW) Est protein needs: 66-82 gms/day (0.8-1.0 gm/kgBW) Will continue to monitor and reassess prn. Addendum: 05/20/19 at [address] Amended: Links added.
[2019-05-20 17:00] VITALS: BP 148/79
--- NOTE | 2019-05-20 19:30 | NUR ---
Opening Shift Note Assumed care of patient, awake and alert x4. Patient denies pain or shortness of breath at this time. Instructed on plan of care and to call for assistance as needed, patient verbalized understanding. Bed is locked in lowest position, side rails x 2 are up, and call light is within reach.
[2019-05-20 22:16] VITALS: BP 152/79
[2019-05-21] MEDS ORDERED: LEVO500T21 PO (00:48)
[2019-05-21] MEDS ORDERED: PRED-158 PO (00:48)
[2019-05-21] MEDS: LEVALBUTEROL HCL 1.25 MG/3 ML NEB NEB SCH ×3 (02:42→09:51)
[2019-05-21] MEDS: IPRATROPIUM BROM 0.5 MG/2.5ML INH SOL NEB SCH ×3 (02:42→09:51)
--- NOTE | 2019-05-21 02:42 | NUR ---
Respiratory note: PT REQUESTED NOT TO BE WOKEN FOR THIS TX. PT IS SLEEPING AT THIS TIME. NO RESP DISTRESS NOTED. PT REMAINS ON RA.
[2019-05-21 05:28] VITALS: BP 137/96
--- NOTE | 2019-05-21 06:54 | NUR ---
MRSA SWAB MRSA swab collected and sent to lab per discharge protocol.
--- NOTE | 2019-05-21 08:00 | NUR ---
ASSESSMENT NOTE PT IS ALERT ORIENTED X4, RESTING IN BED COMFORTABLY, NO DISTRESS NOTED, ABLE TO SELF REPOSITION AND VERBALIS HER DEMANDS, NO SHORTNESS OF BREATH NOTED, PAIN 0/10, CALL LIGHT WITHIN REACH
--- NOTE | 2019-05-21 08:15 | NUR ---
PLAN OF CARE DISCUSSED WITH PT ECHOCARDIOGRAM DR DORSEY CLEARANCE AND NEBULIZER MACHINE
[2019-05-21 08:17] VITALS: BP 145/85
[2019-05-21] MEDS: ENOXAPARIN SOD 40 MG/0.4 ML SYRINGE SC SCH (08:46)
[2019-05-21] MEDS: levoFLOXacin 500MG 100 ML IV SCH (08:46)
[2019-05-21] MEDS: PANTOPRAZOLE 40 MG TAB PO SCH (08:47)
[2019-05-21] MEDS ORDERED: predniSONE 20 MG TAB PO SCH (10:00)
--- NOTE | 2019-05-21 10:06 | NUR ---
EMELINA FROM [employer] [employer] CALLED ME SAID THE COMPANY ALREADY GOT THE AUTHORIZATION, WE NEED TO FAX FACE SHEET, ORDERS AND H& P
--- NOTE | 2019-05-21 10:12 | NUR ---
FAXED H AND P, FACE SHEET AND ORDERS TO [facility]
--- NOTE | 2019-05-21 10:15 | NUR ---
CALLED [facility] [phone] A BRIEF MESSAGE LEFT ON THE ANSWER MACHINE
--- NOTE | 2019-05-21 10:32 | NUR ---
CALLED [facility] AGAIN, SPOKE WITH JD SAID THAT SHE NEVER RECEIVED THE AUTHORIZATION NUMBER BUT SHE WILL PUSH IT TO THURSDAY AND WILL ASSIGN A CAR WASH ATTENDANT FROM [facility] TO DELIVER IT TODAY
--- NOTE | 2019-05-21 10:40 | NUR ---
CALLED [facility] OUT, SPOKE WITH HARIKA SAID THAT THE ECHO WAS DONE PREVIOUSLY VISIT WAS 55%
--- NOTE | 2019-05-21 10:46 | NUR ---
PAGE DR DORSEY TO OBTAIN CARDIOLOGY CLEARANCE
--- NOTE | 2019-05-21 11:00 | NUR ---
ECHO FROM APRIL FILLED INSIDE THE CHART
--- NOTE | 2019-05-21 12:16 | NUR ---
DR DORSEY CALLED BACK WITH CLEARANCE THAT PT CAN GO HOME
--- NOTE | 2019-05-21 12:30 | NUR ---
FAMILY AND SON AT BED SIDE , INFORM ME THAT THE NEBULIZER MACHINE WAS DELIVERED AT 10AM
--- NOTE | 2019-05-21 15:27 | NUR ---
RX MEDICATIONS PATIENT'S SON IS HERE VERIFYING WHICH PHARMACY MD DID USE, FIND OUT IT WAS [facility], [facility], CALLED IN RX TO [facility] [address] PER FAMILY REQUEST
== END 2019-05-21 13:05 | disposition home or self-care (01) | DRG 140 ==
LOC: EDBD 20:24 → ER 20:28 → OVERFLOW 20:29 → MERGE 20:29 → ICU WEST 05-17 18:45 → TELE-EAST 05-19 22:33
PROVIDERS: ADMIT Nurse Practitioner; ATTEND Internal Medicine
PROC: 5A09357 Assistance with Respiratory Ventilation, Less than 24 Consecutive Hours, Continuous Positive Airway Pressure (ICD-10-PCS; principal; 2019-05-16)
PROC: 5A09357 Assistance with Respiratory Ventilation, Less than 24 Consecutive Hours, Continuous Positive Airway Pressure (ICD-10-PCS; 2019-05-17)
DX: J44.1 Chronic obstructive pulmonary disease with (acute) exacerbation (principal); J96.21 Acute and chronic respiratory failure with hypoxia; J45.902 Unspecified asthma with status asthmaticus; R55 Syncope and collapse; E66.9 Obesity, unspecified; I10 Essential (primary) hypertension; I25.10 Atherosclerotic heart disease of native coronary artery without angina pectoris; D18.00 Hemangioma unspecified site; Z68.31 Body mass index [BMI] 31.0-31.9, adult; Z82.49 Family history of ischemic heart disease and other diseases of the circulatory system; Z87.891 Personal history of nicotine dependence; Z87.19 Personal history of other diseases of the digestive system
CPT/HCPCS: 36415; 36600; 70450; 71045; 71046; 71275; 80048; 80053; 82805; 83605; 83880; 84484; 85025; 85379; 87040; 87081; 87804; 93005; 93970; 94640; 94644; 94660; 96365; 96366; 96367; 96375; 96376; 99291; G0378; J0696; J1956; J2405

== ENCOUNTER 2022-09-19 14:49 | Emergency (ER) | payer BC, MEDICAID ==
[~2022-09-19] VITALS: Ht 162.6 cm; Wt 88.6 kg
[~2022-09-19 14:49] MED LIST changes: +ALBU108A5; +CETI10TA2; +ESCI1TAB36; +FLUT50SP; +IPRAAER6; +LEVO500T31 PO; +MONT-8; +MONT5CHW12 PO; -MONT5CHW17 PO; +PRED10TA PO; +TIOT1AER2
[2022-09-19] MEDS ORDERED: TRAM50TA2 PO (16:53)
[2022-09-19 16:57] VITALS: BP 133/79
[2022-09-19] MEDS ORDERED: HYDROcodone-ACET 5/325MG TAB PO ONE (17:00)
== END 2022-09-19 17:21 | disposition home or self-care (01) ==
LOC: ER 14:49
DX: S83.91XA Sprain of unspecified site of right knee, initial encounter (principal); J44.9 Chronic obstructive pulmonary disease, unspecified; Z90.49 Acquired absence of other specified parts of digestive tract; Z79.2 Long term (current) use of antibiotics; Z79.899 Other long term (current) drug therapy; Z88.8 Allergy status to other drugs, medicaments and biological substances; X50.1XXA Overexertion from prolonged static or awkward postures, initial encounter; Y93.89 Activity, other specified; Y92.89 Other specified places as the place of occurrence of the external cause; Y99.8 Other external cause status
CPT/HCPCS: 73562